=== PATIENT | female | born 1975 | race Caucasian/White ===

== ENCOUNTER → 2025-05-06 10:37 | Outpatient (REF) | payer OTHER, SELFPAY | LOC: EMG 10:37 | PROVIDERS: ATTENDING PHYSICIAN Orthopaedic Surgery Hand Surgery | DX: M79.641 Pain in right hand (principal); M79.642 Pain in left hand; R20.0 Anesthesia of skin; R20.2 Paresthesia of skin | CPT/HCPCS: 95886; 95911 ==